=== PATIENT | male | born 1965 | race Caucasian/White ===

== ENCOUNTER → 2016-08-07 | Outpatient (CLI) | payer BC ==
[~2016-08-07] MED LIST: CHOL400T PO; GABA-113 PO; HYDR-3983 PO; LISI-729 PO; PRAM0.129 PO; PRAM1.5T5 PO; PRAM1TAB PO; TIOTCAP INH
--- NOTE | 2016-08-08 06:46 | PAP/PSG TECHNICIAN REPORT ---
[facility] Dressing Room Porter Polysomnogram Report Study name: None Report date: 08/08/2016 Study date: 08/07/2016 Referring Physician: Kip Moncada D.O. Name: ELMER BURDICK Interpreting Physician: Alex Friend M.D. Date of : 1965 Dressing Room Porter: Jose Alberto Baeza RPSGT. Sex: Male Age: 51 StudyType: PSG PAP Weight: 280 lbs Height: 51 years, Height 6' 5" BMI: 33.2 Medications: GABAPENTIN 300 MG, HYDROCODONE-ACETAMINOPHEN, LISINOPRIL 5 MG, PRAMIPEXOLE DIHYDROCHLORIDE 1.5 MG, SPIRIVA RESPIMAT 1.25MCT Patient History PATIENT HAD A SLEEP STUDY DONE IN MARCH OF 2016. HE WAS POSITIVE FOR SHELBI WITH AN RDI OF 21.4/HR. HE IS HERE TODAY FOR A TITRATION STUDY. RM 3 Parameters Monitored NPSG: E1-M2, E2-M1, Fp1-M2, Fp2-M1, F3-M2, F4-M2, F4-M1, C3-M2, C4-M2, C4-M1, O1-M2, O2-M2, O2-M1, T3-M2, T4-M1, P3-M2, P4-M1, CHIN1, CHIN2, HR, EKG, Legs, PFLOW, SNOR, FLOW, CFLOW, Tidal Volume, THOR, ABDO, SpO2, PLTH, CPRESS, ETCO2 Wave, ETCO2, pH Sleep Architecture Sleep Stages Time at Lights Off 10:32:01 PM STAGES Time (min.) TST (%) Time at Lights On 4:36:31 AM Wake 36.5 -- Total Recording Time (TRT) 365.00 min. N1 7.0 2 Total Sleep Period (TSP) 357.0 min. N2 226.0 69 Total Sleep Time (TST) 328.0min. N3 35.5 11 Awake Time 37.0 min. REM 59.5 18 Wake after Sleep Onset 35.5 min. Sleep Efficiency (SE) 90 % Sleep Onset Latency (HERMES) 1.0 min. Number of Stage 1 Shifts None Awakenings 18 Stage Changes 72 Number of REM periods 3 REM 59.5 18 REM Latency 26.0 min. NREM 268.5 82 Body Position Analysis Supine Right Left Side Prone Vertical Total Sleep Time (min.) 113.5 110.2 136.8 247.00 0.0 0.0 Total Sleep Time (%) 25% 34% 42% 75 0% N/A% Total Sleep Time REM (min.) 0.0 14.5 45.0 None 0.0 0.0 Total Sleep Time NREM (min.) 81.0 95.7 91.8 None 0.0 0.0 Intermittent Wake (min.) 32.5 2.0 2.0 None 0.0 0.0 Total Sleep Period (%) 30% None None None None None Arousals Myoclonus (PLM) * Events Count Index Events Count Index Spontaneous 15 3 Events Awake (PLMW) 62 101.9 Respiratory 34 7.0 Events Asleep w/ Arousal (PLMA) 15 2.7 PLM 15 3 Events Asleep w/o Arousal (PLMS) 95 17.4 Snoring 7 1 Total Asleep 110 20.1 Total 71 13 Total 172 28 Respiratory Analysis * CA OA MA CH H RERA Total Count 63 6 5 0 93 2 167 Index 11.5 1.1 0.9 0 17.0 0 30.9 Mean Duration 18.3 17.9 35.1 0.00 17.3 15.9 18.2 Longest Duration 38.3 20.4 41.4 0.00 41.4 18.1 41.4 Respiratory Event Summary Total Supine ~Supine Right Left Prone REM NREM Apneas Count 74 39 35 3 32 N/A 3 71 Index 13.5 29 9 1.6 14.0 N/A 3 16 Hypopneas (4% Desat) Count 93 49 44 14 30 N/A 6 87 Index 17.0 36.3 11 7.6 13.2 N/A 6.1 19.4 Apneas & All Hypopneas Count 167 88 79 17 62 N/A 9 158 Index 30.5 65 19 9 27 N/A 9.1 35.3 Respiratory Events (Spinning Lathe Operator+All Hyp+RERA) Count 167 89 80 18 62 N/A 9 158 Index 30.9 66 19 9.8 27.2 N/A 9.1 35.8 Respiratory Related Arousal Count 34 89 13 5 8 N/A 1 37 Index 7.0 19 3 3 4 N/A 1 8 Snoring Analysis Supine Right Left Prone REM NREM Total Snore duration 32.4 min Snores count 207 744 376 N/A 99 1,228 1,327 Snore mean duration 1.5 Sec Snores index 153 405 165 N/A 99.8 274.4 242.7 TST with snoring (%) 9.9% Desaturation Event Summary: Minimum %SpO2 Event Count Mean/Min/Max Duration(sec.) Desaturation Index % Time In Bed > 90 182 22.7 / 8.5 / 56.8 36.5 84.4 86 - 90 1 10.0 / 10.0 / 10.0 1.1 15.4 81 - 85 0 N/A 0.0 0.2 76 - 80 0 N/A 0.0 0.0 71 - 75 0 N/A 0.0 0.0 66 - 70 0 N/A 0.0 0.0 61 - 65 0 N/A 0.0 0.0 56 - 60 0 N/A 0.0 0.0 51 - 55 0 N/A 0.0 0.0 < 50 0 N/A 0.0 0.0 Total REM NREM Awake <50% 0.0 min. 0.0 min. 0.0 min. 0.0 min. 51 - 60% 0.0 min. 0.0 min. 0.0 min. 0.0 min. 61 - 70% 0.0 min. 0.0 min. 0.0 min. 0.0 min. 71 - 80% 0.0 min. 0.0 min. 0.0 min. 0.0 min. 81 - 90% 55.2 min. 4.4 min. 47.8 min. 2.9 min. 91 - 100% 299.1 min. 55.0 min. 220.5 min. 23.6 min. Average 93 93 92 94 Minimum SpO2 81 89 81 83 Desaturation Event Index 30.0 9.1 35.1 27.9 # Desat. Events below 89% 25 N/A 20 5 Time(%) with Saturation below 89% 1.0 0.0 0.9 0.2 Time(min.) with Saturation below 89% 3.7 0.0 3.0 0.7 Time (mins) REM (mins) NREM (mins) % of TST SpO2 Below 90% 105 7 N98 2.5 SpO2 Below 88% 9 0 0 0 Heart Rate Analysis Min (bpm) Max (bpm) Average (bpm) Awake 53 127 67 NREM 49 90 56 REM 52 75 58 Overall 49 90 57 Supplemental O2 Values Minimum O2 level: None Value Start Time End Time Dressing Room Porter Comments Mr. Burdick slept in the right, left and supine positions. No cardiac arrhythmia noted. Leg movements noted. No bruxism noted. CPAP was initiated at +4 CMH2O and up-titrated to a level of +7 CMH2O. I switched to BIPAP due to central and mixed apneas starting at 8/4 and up-titrated 13/7. At this pressure, I added a rate of 12 due to central apneas. I later increased the rate to 14 and up-titrated to 16/9 due to apneas and hypopneas. A Resmed Mirage Quattro full face size large mask was used during titration Mr. Burdick awoke to use the restroom 2 times during the night. Mr. Burdick stated I did not sleep as well as I do when I am in my own bed. The final report will be interpreted and signed by a sleep physician. The completed physician report will then be placed in the patient medical record. Therapy Event: Therapy (cm H20) 4 5 6 7 8/4 9/4 10/4 11/4 Total Time at Pressure (min.) 7.5 7.6 10.6 16.0 22.7 42.2 13.8 16.7 TST at Pressure (min.) 4.5 7.1 9.1 16.0 22.7 42.2 13.8 14.7 # Periods 1 1 1 1 1 1 1 1 Sleep Onset (min.) 1.0 0.0 0.0 0.0 0.0 0.0 0.0 0.0 REM Onset (min.) N/A N/A N/A 1.2 N/A N/A N/A N/A Sleep Efficiency % 59 93 85 100 100 100 100 88 Wakefulness (%) 40.1 6.5 14.1 0.0 0.0 0.0 0.0 11.9 Wakefulness (min.) 3.0 0.5 1.5 0.0 0.0 0.0 0.0 2.0 NREM 1 (%) 19.9 26.3 4.7 0.0 0.0 0.0 0.0 0.0 NREM 1 (min.) 1.5 2.0 0.5 0.0 0.0 0.0 0.0 0.0 NREM 2 (%) 40.1 67.2 81.2 9.4 60.4 65.7 100.0 88.1 NREM 2 (min.) 3.0 5.1 8.6 1.5 13.7 27.7 13.8 14.7 NREM 3 (%) 0.0 0.0 0.0 0.0 39.6 34.3 0.0 0.0 NREM 3 (min.) 0.0 0.0 0.0 0.0 9.0 14.5 0.0 0.0 REM (%) 0.0 0.0 0.0 90.6 0.0 0.0 0.0 0.0 REM (min.) 0.0 0.0 0.0 14.5 0.0 0.0 0.0 0.0 # Arousals 6 8 3 1 4 8 2 10 Arousal Index 80.2 67.2 19.7 3.8 10.6 11.4 8.7 40.7 # Snore 1 4 0 2 46 400 158 140 Snore Index 13.4 33.6 0.0 7.5 121.5 568.2 686.1 569.8 AHI 93.6 67.2 32.9 3.8 2.6 4.3 34.7 40.7 AHI Supine 93.6 67.2 57.3 N/A N/A N/A N/A N/A AHI Non-Supine N/A N/A 0.0 3.8 2.6 4.3 34.7 40.7 NREM AHI 93.6 67.2 32.9 0.0 2.6 4.3 34.7 40.7 REM AHI N/A N/A N/A 4.1 N/A N/A N/A N/A RDI 93.6 67.2 32.9 3.8 2.6 4.3 39.1 40.7 # Obstructive 0 0 0 0 0 0 0 0 # Central Ap 7 4 4 1 0 0 0 8 # Mixed 0 4 1 0 0 0 0 0 # Hypopneas 0 0 0 0 1 3 8 2 RERAS 0 0 0 0 0 0 1 0 Total Respiratory Events 7 8 5 1 1 3 9 10 Time Below SpO2 89.00% (min.) 0.4 1.1 0.2 0.0 0.0 0.0 0.0 0.3 Mean NREM SpO2 (%) 94 93 92 93 91 91 92 93 Mean REM SpO2 (%) N/A N/A N/A 92 N/A N/A N/A N/A Mean Sleep SpO2 (%) 94 93 92 92 91 91 92 93 Min NREM SpO2 (%) 86 81 86 92 89 89 89 88 Min REM SpO2 (%) N/A N/A N/A 89 N/A N/A N/A N/A Position Supine (min.) 4.5 7.1 5.2 0.0 0.0 0.0 0.0 0.0 Position Non-supine (min.) 0.0 0.0 3.9 16.0 22.7 42.2 13.8 14.7 LM Index Sleep 40.1 75.6 32.9 7.5 18.5 8.5 8.7 48.8 LM Index NREM 40.1 75.6 32.9 0.0 18.5 8.5 8.7 48.8 LM Index REM N/A N/A N/A 8.3 N/A N/A N/A N/A Mean Heart Rate (bpm) 58 57 57 61 58 58 58 59 Min Heart Rate (bpm) 54 52 52 55 53 51 52 53 Therapy (cm H20) 11/5 12/6 13/7 14/7 14/8 15/8 16/9 Total Time at Pressure (min.) 23.9 8.4 48.5 30.2 17.1 83.1 16.1 TST at Pressure (min.) 23.9 8.4 48.0 11.7 15.6 80.6 9.6 # Periods 1 1 1 1 1 1 1 Sleep Onset (min.) 0.0 0.0 0.0 0.0 0.0 0.0 0.0 REM Onset (min.) 9.7 0.0 N/A N/A N/A 14.2 N/A Sleep Efficiency % 100 100 99 38 91 97 59 Wakefulness (%) 0.0 0.0 1.0 61.3 8.8 3.0 40.4 Wakefulness (min.) 0.0 0.0 0.5 18.5 1.5 2.5 6.5 NREM 1 (%) 0.0 0.0 0.0 6.6 0.0 0.6 3.1 NREM 1 (min.) 0.0 0.0 0.0 2.0 0.0 0.5 0.5 NREM 2 (%) 40.8 53.8 78.3 32.0 91.2 61.5 56.5 NREM 2 (min.) 9.7 4.5 38.0 9.7 15.6 51.1 9.1 NREM 3 (%) 0.0 0.0 20.6 0.0 0.0 2.4 0.0 NREM 3 (min.) 0.0 0.0 10.0 0.0 0.0 2.0 0.0 REM (%) 59.2 46.2 0.0 0.0 0.0 32.5 0.0 REM (min.) 14.1 3.9 0.0 0.0 0.0 27.0 0.0 # Arousals 2 1 7 7 1 7 4 Arousal Index 5.0 7.1 8.8 36.0 3.8 5.2 25.0 # Snore 174 43 58 25 36 203 37 Snore Index 437.7 306.9 72.5 128.6 138.5 151.1 231.4 AHI 27.7 28.5 43.8 102.9 69.2 20.8 50.0 AHI Supine N/A N/A N/A 97.4 69.2 52.7 50.0 AHI Non-Supine 27.7 28.5 43.8 151.4 N/A 3.5 N/A NREM AHI 37.0 13.3 43.8 102.9 69.2 31.3 50.0 REM AHI 21.3 46.4 N/A N/A N/A 0.0 N/A RDI 27.7 28.5 43.8 102.9 69.2 20.8 56.3 # Obstructive 1 1 0 0 0 4 0 # Central Ap 1 0 21 12 3 0 2 # Mixed 0 0 0 0 0 0 0 # Hypopneas 9 3 14 8 15 24 6 RERAS 0 0 0 0 0 0 1 Total Respiratory Events 11 4 35 20 18 28 9 Time Below SpO2 89.00% (min.) 0.5 0.0 0.0 0.0 0.0 0.2 0.2 Mean NREM SpO2 (%) 91 92 93 94 93 93 94 Mean REM SpO2 (%) 92 93 N/A N/A N/A 95 N/A Mean Sleep SpO2 (%) 92 92 93 94 93 94 94 Min NREM SpO2 (%) 88 89 90 89 88 88 88 Min REM SpO2 (%) 89 89 N/A N/A N/A 93 N/A Position Supine (min.) 0.0 0.0 0.0 10.5 15.6 28.5 9.6 Position Non-supine (min.) 23.9 8.4 48.0 1.2 0.0 52.2 0.0 LM Index Sleep 7.5 7.1 16.3 72.0 15.4 16.4 43.8 LM Index NREM 12.3 0.0 16.3 72.0 15.4 22.4 43.8 LM Index REM 4.3 15.5 N/A N/A N/A 4.4 N/A Mean Heart Rate (bpm) 56 57 55 56 55 56 55 Min Heart Rate (bpm) 52 53 49 51 52 50 51
--- NOTE | 2016-08-09 14:02 | POLYSOMNOGRAPH REPORT ---
CLINICAL DATA: A 51-year-old male with BMI of 33.2, referred by Dr. Moncada and Dr. Dalton for a CPAP titration study. He had a sleep study in March 2016, which showed moderate SHELBI with an RDI of 21.4. SLEEP ARCHITECTURE: Total sleep period was 357 minutes. Total sleep time was 328 minutes, divided between 268.5 minutes of non-REM sleep and 59.5 minutes of REM sleep. The sleep onset latency was 1 minute. REM latency was foreshortened at 26 minutes. Sleep efficiency was 90%. Wake after sleep onset was 35.5 minutes. Sleep consisted of stage N1 2%, N2 69%, N3 11%, REM 18%. AROUSAL DATA: 71 arousals were recorded for an index of 13 per hour. 34 were due to respiratory events. PLM DATA: Mildly elevated limb movements during sleep were noted. There were 110 limb movements during sleep noted for an index of 20.1 per hour with arousal index of 2.7 per hour. RESPIRATORY DATA: The AHI was 30.5. There were 63 central, 6 obstructive and 5 mixed apneic episodes. The longest duration of apnea was 41.4 seconds. There were 93 hypopneic episodes. The longest duration of hypopnea was 41.4 seconds. OXIMETRY DATA: Nocturnal hypoxemia was seen. Oxygen alphonse was 81% during non-REM sleep. The mean saturation was 92%. Time below 88% was 9 minutes. EKG: Heart rates ranged from 49-90 beats per minute. No arrhythmias were noted. MOLD PREPARER'S COMMENTS AND TREATMENT SUMMARY: The patient slept in the right, left, and supine positions. CPAP was started using a ResMed Mirage Quattro full-face size large mask. The patient was begun on CPAP. He was titrated up to 7 cm of water pressure. He developed treatment onset central apneic episodes and was switched to BiPAP initially 8/4. He continued to have apneic episodes and was eventually titrated up to a final BiPAP pressure of 16/9 with a backup rate of 14 breaths per minute. There were no optimal pressure levels found on BiPAP. The best CPAP pressure was at 7 cm of water pressure with an AHI of 3.8. IMPRESSION: Moderate sleep apnea/hypopnea with treatment onset central apneas consistent with complex sleep apnea. No optimal pressure setting could be found during the CPAP titration. RECOMMENDATIONS: The patient may benefit from a trial of auto-CPAP for 4-6 weeks with a download of compliance and effectiveness data. [facility]
== END | disposition home or self-care (01) ==
LOC: C.NEUR 20:00
PROVIDERS: ATTEND Internal Medicine Pulmonary Disease
DX: G47.30 Sleep apnea, unspecified (principal)

== ENCOUNTER → 2016-08-09 | Outpatient (CLI) | payer BC ==
[~2016-08-09] VITALS: Ht 195.6 cm; Wt 129.0 kg
[2016-08-09 15:35] VITALS: BP 129/84; PULSE 81; Ht 195.6 cm; Wt 129.0 kg
== END | disposition home or self-care (01) ==
LOC: C.NEUR 14:25
PROVIDERS: ATTEND Internal Medicine Pulmonary Disease
DX: G47.30 Sleep apnea, unspecified (principal)

== ENCOUNTER → 2016-10-25 | Outpatient (CLI) | payer BC ==
[~2016-10-25] VITALS: Ht 195.6 cm; Wt 124.6 kg
[2016-10-25 16:11] VITALS: BP 139/84; PULSE 80; Ht 195.6 cm; Wt 124.6 kg
== END | disposition home or self-care (01) ==
LOC: C.NEUR 14:38
PROVIDERS: ATTEND Physician Assistant
DX: G47.30 Sleep apnea, unspecified (principal)

== ENCOUNTER → 2016-12-09 | Outpatient (CLI) | payer BC ==
[2016-12-09 17:27] LABS: BASO % 0.3 %; BASO ABS # 0.02 K/uL (0-0.2); COMPLETE YES; EOS % 0.3 %; HEMATOCRIT 41.4 % (42-52); IG% 0.2 %; MEAN CORPUSCULAR HEMOGLOBIN 30.4 pg (25-34); MEAN CORPUSCULAR HGB CONC 33.8 g/dl (32-36); MEAN PLATELET VOLUME 10.7 fL (7.4-10.4); MONO % 8.1 %; NEUT % 60.1 %; PLATELET COUNT 220 K/uL (130-400); WHITE BLOOD COUNT 5.81 K/uL (4.8-10.8)
[2016-12-09 17:35] LABS: URINE APPEARANCE CLEAR (CLEAR); URINE BILIRUBIN NEG (NEG); URINE COLOR YELLOW; URINE EPITHELIAL CELL AUTO 0-5 /lpf (0-5); URINE NITRITE NEG (NEG); UROBILINOGEN NEG (NEG); ZZUR CULT IF INDIC CLEAN CATCH NO
[2016-12-09 17:37] LABS: MANUAL MICROSCOPIC REQUIRED? NO; REVIEW REQ? NO
[2016-12-09 17:40] LABS: ALT/SGPT 28 U/L (12-78); BLOOD UREA NITROGEN 13 mg/dl (7-18); BUN/CREATININE RATIO 16.8 (10-20); CALCIUM 8.7 mg/dl (8.5-10.1); CARBON DIOXIDE 21 mmol/L (21-32); CHLORIDE 113 mmol/L (98-107); CHOLESTEROL 172 mg/dl (0-200); CREATININE 0.79 mg/dl (0.60-1.40); GLUCOSE 83 mg/dl (70-99); POTASSIUM 3.5 mmol/L (3.5-5.1); SODIUM 143 mmol/L (136-145)
[2016-12-09 17:50] LABS: ALB/GLOB RATIO 1.2 (0.9-2); ALKALINE PHOSPHATASE 77 U/L (45-117); AST/SGOT 27 U/L (15-37); CHOLESTEROL/HDL RATIO 2.6; HDL CHOLESTEROL 65 mg/dl; LDL CHOLESTEROL CALCULATED 96 mg/dl; PROSTATE SPECIFIC ANTIGEN 0.916 ng/ml (0.000-4.000); THYROID STIMULATING HORMONE 0.583 uIu/ml (0.300-4.500); TRIGLYCERIDES 56 mg/dl (0-150); VERY LOW DENSITY LIPOPROT CALC 11 mg/dl
[2016-12-09 18:03] LABS: LYME DISEASE AB IGG NEG (NEG); LYME DISEASE AB IGM NEG (NEG)
== END | disposition home or self-care (01) ==
LOC: C.LABBFT 12:00
PROVIDERS: ATTEND Internal Medicine
DX: R42 Dizziness and giddiness (principal); Z12.5 Encounter for screening for malignant neoplasm of prostate; Z13.6 Encounter for screening for cardiovascular disorders

== ENCOUNTER → 2017-01-27 | Outpatient (CLI) | payer BC ==
[~2017-01-27] MED LIST changes: +GADAVIST IV PRN
--- NOTE | 2017-01-27 21:29 | DIAGNOSTIC IMAGING REPORT ---
MRI OF THE BRAIN AND IACS WITHOUT AND WITH CONTRAST CLINICAL HISTORY: R42 [id number] Memory [id number] COMPARISON STUDY: No previous studies for comparison. TECHNIQUE: MRI of the brain was performed from the vertex to the skull base utilizing various T1 and T2 weighted sequences. Following the IV administration of 12 mL of Gadavist contrast, additional enhanced images were obtained. FINDINGS: Sagittal T1, axial diffusion, proton density and T2 weighted axial, coronal FLAIR, and pre and post axial T1-weighted images were acquired. These were supplemented with post gadolinium coronal T1 weighted images. No intra or extra-axial mass lesions are visualized. Axial diffusion-weighted images reveal no evidence of acute or subacute infarction. There is no evidence of ventricular dilatation. Proton density T2-weighted and FLAIR images reveal minimal foci of increased FLAIR signal within the white matter, likely on a small vessel basis There are no abnormal flow voids. No cerebellopontine angle masses are visualized. The 7th and 8th nerve complexes appear normal bilaterally. There are no pathologically enhancing lesions. IMPRESSION: Minimal foci of increased FLAIR signal within the white matter, likely a small vessel basis. Otherwise normal MRI the brain for age. No cerebellopontine angle masses are visualized. Electronically signed by: Rubén Monteiro M.D. 01/27/2017 9:28 PM Dictated Date/Time: 01/27/2017 9:22 PM
== END | disposition home or self-care (01) ==
LOC: C.MRI 20:08
PROVIDERS: ATTEND Physician Assistant
DX: R42 Dizziness and giddiness (principal); R41.3 Other amnesia

== ENCOUNTER → 2017-03-19 | Day surgery (SDC) | payer BC ==
[2017-03-13 07:40] VITALS: BMI 32.0
[~2017-03-19] VITALS: Ht 195.6 cm; Wt 122.7 kg
[~2017-03-19] MED LIST changes: -GABA-113 PO; -GADAVIST IV PRN; -HYDR-3983 PO; +LIDOCAINE HCL 2% 2 ML VIAL (20MG/ML) ONE; -LISI-729 PO; -PRAM0.129 PO; +PROPOFOL IV EMULSION 10 MG/ML 20 ML VIAL IV ONE; -TIOTCAP INH
--- NOTE | 2017-03-19 13:08 | Endo History and Physical ---
History & Physical Date of Service: Mar 19, 2017. Chief Complaint: History of colon polyps Referring Physician: Dr. Dalton History of Present Illness 52 yo CM who presents for colonoscopy secondary to history of colon polyps. Past Medical History Neurological Disorder Past Surgical History Hx Cardiac Surgery: No Hx Internal Defibrillator: No Hx Pacemaker: No Hx Abdominal Surgery: No Hx of Implantable Prosthesis: No Hx Post-Op Nausea and Vomiting: No Hx Cancer Surgery: No Hx Thoracic Surgery: No Hx Orthopedic: Yes (LOW BACK SURGERY, C4-5 FUSION (FULL ROM), RT PLANTAR FASCIITIS, LT KNEE) Hx Urinary Tract Surgery: No Family History None Social History Smoking Status: Former Smoker Hx Substance Use: No Hx Alcohol Use: No Allergies Coded Allergies: Chlorhexidine (Verified Allergy, Intermediate, RASH, 03/13/17) Current Medications Reported Home Medications Medications Dose Route/Sig Max Daily Dose Days Date Category Vitamin D (Cholecalciferol) 400 Unit Tab 2 Tabs PO HS 03/13/17 Reported Pramipexole Dihydrochlori (Pramipexole Dihydrochloride) 1.5 Mg Tab 1 Tab PO 2 HOURS BEFORE BED 03/13/17 Reported Pramipexole Dihydrochlori (Pramipexole Dihydrochloride) 1.5 Mg Tab 1.5 Tabs PO 6PM 03/13/17 Reported Vital Signs Weight (Kilograms): 122.73 Height (Feet): 6 Height (Inches): 5 Physical Exam General Appearance: WD/WN, no apparent distress Respiratory/Chest: Auscultation: breath sounds normal Cardiovascular: Heart Auscultation: RRR Abdomen: Bowel Sounds: normal Inspection & Palpation: soft, non-distended, no tenderness, guarding & rebound Assessment and Plan Assessment: 52 yo CM who presents for colonoscopy secondary to history of colon polyps. Plan: Proceed with colonoscopy.
[2017-03-19 13:13] VITALS: Ht 195.6 cm; Wt 122.7 kg
--- NOTE | 2017-03-19 14:01 | Discharge Instructions ---
Endoscopy Patient Instructions Date / Procedure(s) Performed Mar 19, 2017. Colonoscopy Allergy Information Coded Allergies: Chlorhexidine (Verified Allergy, Intermediate, RASH, 03/19/17) Discharge Date / Findings Mar 19, 2017. Colon polyp Medication Instructions OK to resume all medications today as prescribed Reported Home Medications Medications Dose Route/Sig Max Daily Dose Days Date Category Vitamin D (Cholecalciferol) 400 Unit Tab 2 Tabs PO HS 03/13/17 Reported Pramipexole Dihydrochlori (Pramipexole Dihydrochloride) 1.5 Mg Tab 1 Tab PO 2 HOURS BEFORE BED 03/13/17 Reported Pramipexole Dihydrochlori (Pramipexole Dihydrochloride) 1.5 Mg Tab 1.5 Tabs PO 6PM 03/13/17 Reported Provider Instructions Activity Restrictions - No exercising or heavy lifting for 24 hours. - Do not drink alcohol the day of the procedure. - Do not drive a car or operate machinery until the day after the procedure. - Do not make any important decisions or sign important papers in 24 hours after the procedure. Following Day: - Return to full activity which may include returning to work/school. Diet Start your diet with liquids and light foods (jello, soup, juice, toast). Then eat your usual diet if not nauseated. Treatment For Common After Affects For mild abdominal pain, bloating, or excessive gas: - Rest - Eat lightly - Lie on right side Follow-Up Information Follow-up with Dr. Dalton as scheduled Anesthesia Information What You Should Know You have had a procedure that required some medicine to reduce anxiety and discomfort. This treatment is called moderate sedation. After receiving the treatment, you may be sleepy, but you will be able to breathe on your own. The effects of the treatment may last for several hours. Follow these instructions along with Activity/Diet recommendations noted above: * Do NOT do anything where dizziness or clumsiness would be dangerous. * Rest quietly at home today, then you can be up and about tomorrow. * Have a responsible person stay with you the rest of today. * You may have had an I.V. today. If so, you may take the dressing off later today. Recommendations Call your doctor if: * Trouble breathing * Continuous vomiting for more than 24 hours * Temperature above 101 degrees * Severe abdominal pain or bloating * Pain not relieved by pain medicine ordered * There is increased drainage or redness from any incision * A large amount of rectal bleeding greater than 2-3 tablespoons. (If you had a polyp/s removed or have hemorrhoids, a small amount of blood - from the rectum is to be expected.) * You have any unanswered questions or concerns. IN THE EVENT OF A SERIOUS EMERGENCY, GO TO THE NEAREST EMERGENCY ROOM Your discharge instructions were prepared by provider Jimmy Isaacs. Patient Instructions Signature Page Gautam Duarte Patient (or Guardian) Signature/Date: I have read and understand the instructions given to me by my caregivers. Caregiver/RN/Doctor Signature/Date: The above-named patient and/or guardian has received patient instructions on this date. + Original Patient Signature Page (only) stays with chart. Please make copy for patient.
--- NOTE | 2017-03-19 14:07 | GI REPORT ---
Procedure Date: 03/19/2017 1:40 PM Procedure: Colonoscopy Indications: Screening for colorectal malignant neoplasm Medicines: Monitored Anesthesia Care Complications: No immediate complications. Estimated Blood Loss: Estimated blood loss: none. Procedure: Pre-Anesthesia Assessment: - Prior to the procedure, a History and Physical was performed, and patient medications and allergies were reviewed. The patient's tolerance of previous anesthesia was also reviewed. The risks and benefits of the procedure and the sedation options and risks were discussed with the patient. All questions were answered, and informed consent was obtained. Prior Anticoagulants: The patient has taken no previous anticoagulant or antiplatelet agents. ASA Grade Assessment: II - A patient with mild systemic disease. After reviewing the risks and benefits, the patient was deemed in satisfactory condition to undergo the procedure. After I obtained informed consent, the scope was passed under direct vision. Throughout the procedure, the patient's blood pressure, pulse, and oxygen saturations were monitored continuously. The scope was introduced through the anus and advanced to the terminal ileum. The colonoscopy was performed without difficulty. The patient tolerated the procedure well. The quality of the bowel preparation was good. The terminal ileum, ileocecal valve, appendiceal orifice, and rectum were photographed. Findings: A 3 mm polyp was found in the transverse colon. The polyp was sessile. The polyp was removed with a cold biopsy forceps. Resection and retrieval were complete. Multiple small-mouthed diverticula were found in the sigmoid colon. Impression: - One 3 mm polyp in the transverse colon, removed with a cold biopsy forceps. Resected and retrieved. - Diverticulosis in the sigmoid colon. Recommendation: - Resume previous diet. - Continue present medications. - Await pathology results. - Repeat colonoscopy for surveillance based on pathology results. - Return to primary care physician as previously scheduled. Jimmy Isaacs DO 03/19/2017 2:07:12 PM This report has been signed electronically. Note Initiated On: 03/19/2017 1:40 PM I attest to the content of the Intraoperative Record and orders documented therein, exceptions below
[2017-03-19 14:28] VITALS: BP 135/86; PULSE 67; O2SAT 97
--- NOTE | 2017-03-19 14:59 | Anesthesiology Progress Note ---
Anesthesia Post Op Note Date & Time Mar 19, 2017 at 14:59 Vital Signs Pain Intensity: 0 Vital Signs Past 12 Hours Date Time Temp Pulse Resp B/P (MAP) Pulse Ox O2 Delivery O2 Flow Rate FiO2 03/19/17 14:28 67 20 135/86 (102) 97 Room Air 03/19/17 14:13 54 20 118/62 (80) 98 Room Air 03/19/17 13:58 58 20 92/56 (68) 96 Room Air 03/19/17 13:06 36.7 62 20 140/72 (94) 97 Room Air Notes Mental Status: alert / awake / arousable, participated in evaluation Pt Amnestic to Procedure: Yes Nausea / Vomiting: adequately controlled Pain: adequately controlled Airway Patency, RR, SpO2: stable & adequate BP & HR: stable & adequate Hydration State: stable & adequate Anesthetic Complications: no major complications apparent
== END | disposition home or self-care (01) ==
LOC: C.GI 12:32
PROVIDERS: ATTEND Internal Medicine
DX: Z12.11 Encounter for screening for malignant neoplasm of colon (principal); D12.3 Benign neoplasm of transverse colon; K57.30 Diverticulosis of large intestine without perforation or abscess without bleeding; G47.33 Obstructive sleep apnea (adult) (pediatric); J44.9 Chronic obstructive pulmonary disease, unspecified; Z86.010 Personal history of colon polyps; Z87.891 Personal history of nicotine dependence

== ENCOUNTER → 2018-01-16 | Outpatient (CLI) | payer BC ==
[~2018-01-16] MED LIST changes: -LIDOCAINE HCL 2% 2 ML VIAL (20MG/ML) ONE; -PRAM1.5T5 PO; -PROPOFOL IV EMULSION 10 MG/ML 20 ML VIAL IV ONE; +[UNRECOGNIZED DRUG - CODE] PO
[2018-01-16 17:56] LABS: ALBUMIN 4.2 gm/dl (3.4-5.0); ALKALINE PHOSPHATASE 97 U/L (45-117); ALT/SGPT 39 U/L (12-78); AST/SGOT 29 U/L (15-37); BLOOD UREA NITROGEN 27 mg/dl (7-18); CALCIUM 8.9 mg/dl (8.5-10.1); CARBON DIOXIDE 23 mmol/L (21-32); CHOLESTEROL 217 mg/dl (0-200); CREATININE 1.31 mg/dl (0.60-1.40); GLUCOSE 89 mg/dl (70-99); LDL CHOLESTEROL CALCULATED 105 mg/dl; POTASSIUM 4.1 mmol/L (3.5-5.1); SODIUM 137 mmol/L (136-145); TOTAL PROTEIN 8.1 gm/dl (6.4-8.2)
== END | disposition home or self-care (01) ==
LOC: C.LABBFT 11:10
PROVIDERS: ATTEND Internal Medicine
DX: R25.2 Cramp and spasm (principal); G60.3 Idiopathic progressive neuropathy; E55.9 Vitamin D deficiency, unspecified; Z12.5 Encounter for screening for malignant neoplasm of prostate; Z13.6 Encounter for screening for cardiovascular disorders

== ENCOUNTER 2018-06-18 06:49 | Observation (INO) ==
--- NOTE | 2018-05-27 09:36 | Anesthesiology Consultation ---
Date of Service May 27, 2018 Assessment & Plan (1) Encounter for pre-operative examination: Chart Review Chart Review: Acceptable Risk for Surgery and Patient seen in Pre Admission Testing Teaching & Discussion Pre-Anesthesia Teaching/Discussion Notes: Instructed NPO after midnight before surgery,except medications with 15 cc of water. Medication instructions provided according to the PAT guidelines. History Surgery Operation Date: 06/04/18 09:50 Proposed Procedures p C6-C7 Anterior Cervical Discectomy and Fusion, with Iliac Crest Bone Graft - Alex Chapman DO Height/Weight Height: 6 ft 5 in Weight: 129.8 kg Allergies Allergy/AdvReac Type Severity Reaction Status Date / Time chlorhexidine Allergy Intermediate RASH Verified 05/25/18 13:54 Medications Home Medications Medication Instructions Recorded Confirmed Last Taken meloxicam 7.5 mg PO UD PRN 05/25/18 05/25/18 Unknown pramipexole 1.5 mg PO HS 05/25/18 05/25/18 Unknown Past Medical History Medical History Chronic back pain Chronic obstructive pulmonary disease STABLE Degenerative disc disease Fusion of spine CERVICAL Obesity Osteoarthritis RLS (restless legs syndrome) Sleep apnea CPAP Past Surgical History Surgical History History of arthroscopy LEFT KNEE History of colonoscopy History of herniorrhaphy UMBILICAL History of laminectomy LUMBAR History of surgery PLANTAR FASCIOTOMY History of surgery AXILLA CYSTECTOMY Past Anesthesia History No Hx of Anesthesia Complications and No Family Hx of Anesthesia Complications History of PONV No Motion Sickness Screening History of Motion Sickness: No Social History Smoking Status: Former smoker tobacco type: cigarettes Smoking cigarettes per day: HX SOCIAL USE, QUIT 25 YEARS AGO Do You Dip or Chew Tobacco: No Hx Alcohol Use: Yes Alcohol type: other alcohol intake frequency: holidays/special occasions only Hx Substance Use: No substance use type: does not use Exercise / Class Metabolic Activity II 4-5 Yardwork/Stairs/Walk up hill Review of Systems Patient reports knee pain, back pain, cervicalgia; right hand numbness. Patient denies chest pain, shortness of breath, dyspnea on exertion, reflux, cough, wheezing, palpitations. Physical Exam Vital Signs VITALS BP 119/78 P 73 TEMP 98.4 RESP 18 SP02 98%RA Full neck and c-spine range of motion. Full TMJ range of motion. TMD 3 finger breaths Mallampati Score 1 Dentition: missing molar, upper front caps Lungs: clear throughout to auscultation Cardiac: regular rate and rhythm, no murmurs noted Spine: normal Carotid arteries: negative bruit Extremities: no edema Testing Electrocardiogram Date: 05/27/18 Findings: + NSR @ (75) Chest X-Ray Date: 05/27/18 Findings: + NAD Echocardiogram Date: 12/13/15 LVEF 55% No RWMA. No significant valvular disease. Stress Test Date: 01/19/16 Type: exercise Negative exercise stress ECHO/EKG for ischemia at 82%MPHR. Negative chest pain. 10 METS. Laboratory Results 05/27/18 09:45 05/27/18 09:45 Blood Type A Positive 05/27/18 09:45 Antibody Screen NEGATIVE 05/27/18 09:45 PT 10.5 Seconds (9.0-12.0) 05/27/18 09:45 INR 1.0 (0.9-1.1) 05/27/18 09:45 APTT 26.4 Seconds (21.0-31.0) 05/27/18 09:45
--- NOTE | 2018-05-27 09:41 | PAT Medication Instructions ---
Medication Instructions Date of Service May 27, 2018 Home Medications meloxicam 7.5 mg PO UD PRN pramipexole 1.5 mg PO HS ASK your surgeon for instructions meloxicam 7.5 mg PO UD PRN STOP taking 24 hours before surgery pramipexole 1.5 mg PO HS Other Notes If you have any questions please call us at [phone] or [phone] or [phone] or [phone]
[2018-05-27 09:59] LABS: Basophils # (auto) 0.01 K/uL (0-0.2); Basophils % (auto) 0.2 %; Eosinophils # (auto) 0.02 K/uL (0-0.5); Eosinophils % (auto) 0.4 %; Hematocrit (blood only) 41.6 % (42-52); Hemoglobin 13.8 g/dL (14.0-18.0); Immature Granulocytes # (auto) 0.01 K/uL (0.00-0.02); Immature Granulocytes % (auto) 0.2 %; Lymphocytes # (auto) 1.46 K/uL (1.2-3.4); Lymphocytes % (auto) 27.4 %; Mean Corpuscular Hgb Conc 33.2 g/dL (32-36); Mean Corpuscular Volume 91.4 fL (80-100); Mean Platelet Volume 10.6 fL (7.4-10.4); Monocytes # (auto) 0.41 K/uL (0.11-0.59); Monocytes % (auto) 7.7 %; Neutrophils # (auto) 3.41 K/uL (1.4-6.5); Neutrophils % (auto) 64.1 %; Platelet Count 186 K/uL (130-400); RDW Coefficient of Variation 12.7 % (11.5-14.5); RDW Standard Deviation 42.7 fL (36.4-46.3); Red Blood Count 4.55 M/uL (4.7-6.1); White Blood Count 5.32 K/uL (4.8-10.8)
[2018-05-27 10:08] LABS: Partial Thromboplastin Time 26.4 Seconds (21.0-31.0); Prothrombin Time 10.5 Seconds (9.0-12.0)
--- NOTE | 2018-05-27 10:08 | XRay Report ---
XR chest Pre-admission PA/Lat CLINICAL HISTORY: pat preoperative COMPARISON STUDY: 07/01/2013 FINDINGS: The bones soft tissues and hemidiaphragms are normal. The cardiomediastinal silhouette is n ormal. The lungs are clear. The pulmonary vasculature is normal. IMPRESSION: Negative chest. The above report was generated using voice recognition software. It may contain grammatical, syntax or spelling errors. Electronically signed by: Deion Lilly M.D. 05/27/2018 10:06 AM
[2018-05-27 12:03] LABS: BUN Creatinine Ratio 25.2 (10-20); Creatinine Clr Calc Pharmacy 146.4 ml/min; Est GFR (African American) 113.7; Est GFR (Non-African American) 98.1; Potassium 4.1 mmol/L (3.5-5.1)
--- NOTE | 2018-06-17 16:49 | History and Physical Report ---
DATE OF ADMISSION: 06/18/2018 CHIEF COMPLAINT: Neck pain, arm pain, trapezius pain. HISTORY OF PRESENT ILLNESS: Gautam is a delightful. He is 53. He is a respiratory therapy assistant. He has neck pain and radiation to his right shoulder, numbness and tingling. He has had nerve blocks. He has had therapy; he has failed. He has had a prior fusion, lumbar spine surgery and cervical spine. PAST MEDICAL HISTORY: Negative for hypertension, COPD, diabetes mellitus. PAST SURGICAL HISTORY: Neck surgery, plantar fasciitis, knee scope surgery, and lumbar spine surgery. ALLERGIES: Negative. FAMILY HISTORY: Family history of heart disease and family history of breast cancer. SOCIAL HISTORY: , rarely drinks. No tobacco. Active lifestyle. REVIEW OF SYSTEMS: 12 systems were reviewed. Negative fevers, sweats, chills. Ear, nose and throat negative. No chest pain, palpitation. No asthma, wheezing, shortness of breath. No nausea, vomiting. He has neck pain, arm pain, trapezius pain and numbness and tingling. PHYSICAL EXAMINATION: GENERAL: He is 6 foot, 5 inches, 260 pounds. He is in moderate distress and concerned. He is alert, oriented. Mentation normal as well. VITAL SIGNS: Blood pressure 140/80, pulse 80, respiration 16. HEENT: Pupils react to light and accommodation. Ear, nose and throat clear. CARDIAC: Normal S1, S2, no S3. LUNGS: Clear to auscultation. No rales, rhonchi, wheezing. MUSCULOSKELETAL: He has pain with forward flexion, pain with extension. He has a Spurling maneuver. He has radiation to the shoulder. He has adequate motor strength. X-RAY: CT reviewed. He has a breakdown cervical fusion in particularly the C6-7 region. ASSESSMENT: ACF cervical spine with iliac crest bone graft [facility] on 06/18/2018.
[~2018-06-18 06:49] MED LIST changes: +CEFAZOLIN 3000MG 65 ML IV SCH; -CHOL400T PO; +DEXAMETHASONE SOD INJ 4 MG/ML VIAL ONE; +GLYCOPYRROLATE 0.2 MG/ML VIAL ONE; +LIDOCAINE HCL 2% 2 ML VIAL/AMP(20MG/ML) INFIL ONE; +LR 15ML/HR IV SCH; +MIDAZOLAM HCL 1 MG/ML 2ML VIAL ONE; +NEOSTIGMINE METHYLSULFATE 5 MG/5 ML SYR ONE; +ONDANSETRON INJ 2 MG/ML 2 ML VIAL ONE; -PRAM1TAB PO; +PROPOFOL IV EMULSION 10 MG/ML 20 ML VIAL IV ONE; +ROCURONIUM BROMIDE 10 MG/ML 5 ML VIAL ONE; +SODIUM CHLORIDE 0.9% 1,000 ML IV SCH; -[UNRECOGNIZED DRUG - CODE] PO; +fentaNYL citrate 100 MCG/2 ML VIAL ONE
[2018-06-18] MEDS ORDERED: THROMBIN FOR SOLN 20000 UNIT KIT ONE (07:44)
[2018-06-18] MEDS ORDERED: GELATIN SPONGE SZ 100 ONE (07:44)
[2018-06-18] MEDS ORDERED: BACITRACIN INJ 50,000 UNIT VIAL ONE (07:44)
[2018-06-18] MEDS ORDERED: BUPIVACAINE/EPINEPHRINE 0.5% MPF 1:200,000 30 ML VIAL ONE (07:44)
--- NOTE | 2018-06-18 08:13 | History & Physical Bridge Note ---
Date of Service June 18, 2018 History & Physical Bridge Note I have examined the patient, reviewed the History & Physical and in the interval since the performance of the History & Physical I have noted the following changes of clinical significance: no changes noted
[2018-06-18] MEDS ORDERED: ePHEDrine sulfate 50 MG/ML AMP IV PRN (09:26)
[2018-06-18] MEDS ORDERED: ONDANSETRON INJ 2 MG/ML 2 ML VIAL IV PRN ×2 (09:26→12:02)
[2018-06-18] MEDS ORDERED: ATROPINE SULFATE 0.1 MG/ML 5ML SYR IV PRN (09:26)
[2018-06-18] MEDS ORDERED: HYDROmorphone INJ 2 MG/ML SYR/VIAL IV PRN (09:26)
[2018-06-18] MEDS ORDERED: ROCURONIUM BROMIDE 10 MG/ML 5 ML VIAL ONE ×3 (09:31→09:33)
--- NOTE | 2018-06-18 10:03 | Post Operative Brief Note ---
Immediate Post Op Note v1 Date of Surgery June 18, 2018 Pre & Post Diagnosis Operation Date: 06/18/18 08:15 Pre-Op Diagnosis: Cervical Stenosis; Cord Compression Post-Op Diagnosis: Cervical Stenosis; Cord Compression Procedure Operation Date: 06/18/18 08:15 Actual Procedures p C6-C7 Anterior Cervical Discectomy and Fusion, with Iliac Crest Bone Graft( Not Applicable) - Alex Chapman DO Surgeon Alex Chapman DO Beam Warper kennedy Estimated Blood Loss 10 Findings Consistent with Post-Op Diagnosis Drains Elsa Drain
[2018-06-18] MEDS: fentaNYL citrate 100 MCG/2 ML VIAL IV PRN ×4 (10:19→11:18)
[2018-06-18] MEDS ORDERED: LR 15ML/HR IV SCH (11:00)
--- NOTE | 2018-06-18 11:20 | Operative Report ---
DATE OF OPERATION: 06/18/2018 PREOPERATIVE DIAGNOSIS: Spinal cord compression, C6-C7, cervical. POSTOPERATIVE DIAGNOSIS: Spinal cord compression, C6-C7, cervical. PROCEDURE: Anterior cervical fusion, cervical spine, C6-C7 with iliac crest structural autograft. SURGEON: Alex Chapman DO. LACE STRIPPER: Basilio Bourgeois PA-C. COMPLICATIONS: Zero. DESCRIPTION OF PROCEDURE: Patient was taken to the operating room. A general intubated anesthetic provided to the patient. Prepped and draped sterile. We made a skin incision, fascial incision, readily dissected down to C6-C7 interspace. We did a complete discectomy, foraminotomies, partial facetectomies, and took out all visible disk material, front to back and left to right, including decompressing the neural elements. I also undercut the ligamentum flavum. I took down the posterior longitudinal ligament, removed osteophytes. We irrigated. I went to left iliac crest, made a skin incision, fascial incision. I was able to obtain a structural autograft from the left iliac crest. This was placed in piecemealed form into the vacated discectomy site at C6-C7 along with the [employer] device as well. This was transfixed superior and inferior. The Fix was anatomic. We added some extra bone as well. We irrigated and closed all areas in layers over a drain. Sterile dressings applied, the collar applied, extubated safely to PACU safely. Sponge and needle counts correct. ESTIMATED BLOOD LOSS: 10 mL. I attest to the content of the Intraoperative Record and any orders documented therein. Any exception s are noted below.
--- NOTE | 2018-06-18 11:27 | Fluoroscopy Report ---
FL spine 1V any level CLINICAL HISTORY: C6-C7 ANTERIOR DISC/FUSION COMPARISON STUDY: Cervical spine CT April 20, 2018. FLUOROSCOPY TIME: 5 seconds. FLUOROSCOPIC IMAGES: 2 FINDINGS: These images demonstrate a previous C3-C4 anterior discectomy and fusion. These images demo nstrate postsurgical findings during C6-C7 anterior discectomy and fusion. Screws at the C6 and C7 le vels are noted with interbody spacer. IMPRESSION: Fluoroscopic images during C6-C7 anterior discectomy and fusion. Electronically signed by: Jose Ayala M.D. 06/18/2018 11:26 AM
--- NOTE | 2018-06-18 11:42 | Anesthesiology Progress Note ---
Date of Service June 18, 2018 Anesthesia Post Procedure Vital Signs Vital Signs: Temp Pulse Pulse Resp BP Pulse Ox 06/18/18 11:35 69 16 126/80 97 06/18/18 11:25 56 L 17 130/78 95 06/18/18 11:15 75 20 136/82 96 06/18/18 11:05 36.2 C L 62 20 114/70 97 06/18/18 10:55 63 15 127/85 97 06/18/18 10:45 50 L 14 130/80 98 06/18/18 10:35 52 L 12 133/76 97 06/18/18 10:25 53 L 16 148/84 H 98 06/18/18 10:15 59 L 12 153/88 H 100 06/18/18 10:08 36.2 C L 84 16 151/82 H 100 06/18/18 07:37 36.8 C 54 L 20 132/80 96 Pain Intensity Neck: Pain Intensity: 3 Notes Mental Status: alert / awake / arousable and participated in evaluation Patient Amnestic to Procedure: Yes Nausea / Vomiting: adequately controlled Pain: adequately controlled Airway Patency, RR, SpO2: stable & adequate BP & HR: stable & adequate Hydration State: stable & adequate Anesthetic Complications: no major complications apparent and Pt Satisfied with anesthetic care
[2018-06-18] MEDS ORDERED: DEXAMETHASONE SOD PHOSPHATE 8 MG in SYRINGE 0 ML IV PRN (12:02)
[2018-06-18] MEDS ORDERED: MELOXICAM 7.5 MG TAB PO PRN (12:02)
[2018-06-18] MEDS ORDERED: SODIUM CHLORIDE 0.9% 1000ML 1,000 ML IV SCH (12:02)
[2018-06-18] MEDS ORDERED: NALOXONE HCL 0.4 MG/1 ML VIAL/CARP IV PRN (12:02)
[2018-06-18] MEDS ORDERED: HYDROmorphone INJ 0.5 MG/0.5 ML SYR IV PRN (12:02)
[2018-06-18] MEDS ORDERED: MAGNESIUM HYDROXIDE SUSP 30 ML UDC PO PRN (12:02)
[2018-06-18] MEDS ORDERED: RACEPINEPHRINE 2.25% NEBU SOLN 0.5 ML VIAL INH PRN (12:02)
[2018-06-18] MEDS: ACETAMINOPHEN 1,000 MG/100 ML VIAL IV SCH ×2 (13:23→21:42)
[2018-06-18] MEDS: DEXAMETHASONE SOD PHOSPHATE 6 MG in SYRINGE 0 ML IV SCH ×2 (13:26→21:42)
[2018-06-18] MEDS ORDERED: INFLUENZA VIRUS QUAD VACCINE 0.5 ML SYR IM ONE (15:00)
[2018-06-18] MEDS ORDERED: INFLUENZA ADMINISTRATION CHARGE ONE (15:00)
[2018-06-18] MEDS: CEFAZOLIN 2000MG 2,000 MG/15 ML SYR IV SCH (15:45)
[2018-06-18] MEDS: OXYCODONE HCL IR 5 MG TAB (IMMEDIATE RELEASE) PO PRN (19:47)
[2018-06-18] MEDS: DOCUSATE SODIUM 100 MG CAP PO SCH (20:45)
[2018-06-18] MEDS ORDERED: PRAMIPEXOLE DIHYDROCHLO 0.5 MG TAB PO SCH (21:00)
[2018-06-19] MEDS: CEFAZOLIN 2000MG 2,000 MG/15 ML SYR IV SCH ×2 (00:53→08:40)
[2018-06-19] MEDS: OXYCODONE HCL IR 5 MG TAB (IMMEDIATE RELEASE) PO PRN ×4 (00:59→15:15)
[2018-06-19] MEDS: DEXAMETHASONE SOD PHOSPHATE 6 MG in SYRINGE 0 ML IV SCH (05:49)
[2018-06-19] MEDS: ACETAMINOPHEN 1,000 MG/100 ML VIAL IV SCH ×2 (05:50→14:39)
[2018-06-19] MEDS: DOCUSATE SODIUM 100 MG CAP PO SCH (08:40)
--- NOTE | 2018-06-19 10:21 | Anesthesiology Progress Note ---
Date of Service June 19, 2018 Anesthesia Post Procedure Vital Signs Vital Signs: Temp Pulse Pulse Pulse Resp BP Pulse Ox 06/19/18 08:45 66 20 134/75 95 06/19/18 07:48 58 L 16 94 06/19/18 06:46 36.4 C L 62 16 127/77 93 06/19/18 05:55 93 06/19/18 04:45 36.5 C 60 16 118/73 96 06/19/18 03:06 51 L 16 96 06/19/18 02:45 36.4 C L 57 L 16 115/71 98 06/19/18 00:45 36.5 C 58 L 16 134/77 95 06/18/18 23:17 71 16 96 06/18/18 22:47 36.5 C 58 L 16 111/67 95 06/18/18 20:45 36.4 C L 80 16 136/76 96 06/18/18 19:27 87 16 95 06/18/18 18:45 36.4 C L 84 16 118/73 95 06/18/18 16:45 36.9 C 80 20 130/84 97 06/18/18 15:43 78 16 94 06/18/18 14:45 36.5 C 80 16 126/78 95 06/18/18 13:49 36.4 C L 76 16 143/78 H 97 06/18/18 12:51 36.2 C L 59 L 18 116/75 96 06/18/18 12:35 70 16 97 06/18/18 12:21 36.3 C L 57 L 18 123/77 98 06/18/18 11:45 36.8 C 74 18 123/78 96 06/18/18 11:35 69 16 126/80 97 06/18/18 11:25 56 L 17 130/78 95 06/18/18 11:15 75 20 136/82 96 06/18/18 11:05 36.2 C L 62 20 114/70 97 06/18/18 10:55 63 15 127/85 97 06/18/18 10:45 50 L 14 130/80 98 06/18/18 10:35 52 L 12 133/76 97 06/18/18 10:25 53 L 16 148/84 H 98 Notes Mental Status: alert / awake / arousable and participated in evaluation Patient Amnestic to Procedure: Yes Nausea / Vomiting: adequately controlled Pain: adequately controlled Airway Patency, RR, SpO2: stable & adequate BP & HR: stable & adequate Hydration State: stable & adequate Anesthetic Complications: no major complications apparent and Pt Satisfied with anesthetic care
[2018-06-19 10:51] VITALS: BP 144/82; TEMP 97.7
[2018-06-19 11:39] VITALS: PULSE 68; O2SAT 97
--- NOTE | 2018-06-19 20:07 | Discharge Summary ---
ADMITTING DIAGNOSIS: Cord compression, cervical spine. DISCHARGE DIAGNOSIS: Cord compression, cervical spine. PROCEDURE: Anterior cervical discectomy and fusion. HOSPITAL COURSE: Gautam is delightful. He is 53. He had an uneventful course after relatively routine cervical spine fusion. He has done well, out of bed, taking p.o. No chest pain, shortness of breath. He will be discharged home today on 06/19/2018, improved stable condition. He has a collar. He has medications and has a followup appointment. Instructions as well provided.
== END 2018-06-19 16:00 | disposition home or self-care (01) ==
LOC: 3E 06:49 → ASU 06:49
DX: Z79.899 Other long term (current) drug therapy; Z87.891 Personal history of nicotine dependence; Z68.33 Body mass index [BMI] 33.0-33.9, adult; E66.9 Obesity, unspecified; G47.30 Sleep apnea, unspecified; Z88.8 Allergy status to other drugs, medicaments and biological substances; G95.29 Other cord compression